=== PATIENT | male | born 1980 | race Caucasian/White ===

== ENCOUNTER 2018-09-30 22:10 | Emergency (ER) | payer OTHER ==
[~2018-09-30] VITALS: Ht 167.6 cm; Wt 95.0 kg
[2018-10-01 03:10] VITALS: BP 103/73
== END 2018-10-01 03:19 | disposition home or self-care (01) ==
LOC: ER 22:10 → CANBEDREQ 10-01 04:26
DX: S01.01XA Laceration without foreign body of scalp, initial encounter (principal); R03.0 Elevated blood-pressure reading, without diagnosis of hypertension; W01.0XXA Fall on same level from slipping, tripping and stumbling without subsequent striking against object, initial encounter; Y93.89 Activity, other specified; Y92.018 Other place in single-family (private) house as the place of occurrence of the external cause
CPT/HCPCS: 12002; 99284